=== PATIENT | male | born 1995 | race African-American/Black ===

== ENCOUNTER 2018-07-31 18:01 | Emergency (ER) | payer SELFPAY ==
[~2018-07-31] VITALS: Ht 172.7 cm; Wt 65.3 kg
[2018-07-31 18:03] VITALS: BP 135/94
--- NOTE | 2018-07-31 18:25 | Emergency Room Report ---
History of Present Illness General Chief Complaint: Medical Clearance Source: Patient Present Illness HPI 22-year-old male presents to the emergency department for medical screening exam prior to being booked by a garment sewing machine operator's department. Patient denies any pain at this time he denies any medical complaints. Patient reports history of HIV and seizures he states he takes the medication daily however he cannot recall the name of it. Patient states he did take his medication today. Patient reports that his last seizure was in March. Patient denies illicit drug use he denies alcohol use he reports that he is a smoker. Patient states that he also has been having some epigastric discomfort for 5 weeks now. Patient denies fevers, chills, chest pain, shortness of breath, difficulty or pain with breathing. Allergies: Coded Allergies: No Known Allergies (Unverified , 07/31/18) Patient History Past Medical History: see triage record, seizures, HIV Past Surgical History: none Pertinent Family History: none Social History: Reports: smoking Reviewed Nursing Documentation: PMH: Agreed; PSxH: Agreed Nursing Documentation-PMH Past Medical History: No History, Except For Hx Seizures: Yes Review of Systems All Other Systems: negative except mentioned in HPI Physical Exam Vital Signs Date Time Temp Pulse Resp B/P (MAP) Pulse Ox O2 Delivery O2 Flow Rate FiO2 07/31/18 18:03 98.2 60 17 135/94 99 Room Air Sp02 EP Interpretation: reviewed, normal General Appearance: no apparent distress, alert, GCS 15, non-toxic Head: normocephalic, atraumatic Eyes: bilateral eye normal inspection, bilateral eye PERRL ENT: hearing grossly normal, normal voice Neck: full range of motion Respiratory: lungs clear, normal breath sounds, no respiratory distress, no wheezing, speaking full sentences Cardiovascular #1: regular rate, rhythm Gastrointestinal: normal bowel sounds, non tender, soft Musculoskeletal: back normal, gait/station normal, normal range of motion, non- tender Neurologic: alert, oriented x3, responsive, motor strength/tone normal, sensory intact, normal gait, speech normal, grossly normal Psychiatric: judgement/insight normal Skin: normal color, no rash, warm/dry, well hydrated, other - no rashes, abscess, or track warner Medical Decision Making PA Attestation Dr. Sung is my supervising Physician whom patient management has been discussed with. Diagnostic Impression: Primary Impression: Medical clearance for incarceration ER Course 22-year-old male presents to the emergency department for medical screening exam prior to being booked by a garment sewing machine operator's department. Patient denies any pain at this time he denies any medical complaints. Patient reports history of HIV and seizures he states he takes the medication daily however he cannot recall the name of it. Patient states he did take his medication today. Patient reports that his last seizure was in March. Patient denies illicit drug use he denies alcohol use he reports that he is a smoker. Patient states that he also has been having some epigastric discomfort for 5 weeks now. Patient denies fevers, chills, chest pain, shortness of breath, difficulty or pain with breathing. Ddx considered but are not limited to Head Trauma, AK, ACS, SI/HI, URI, SAH, Fractures, Dislocations, Tazer barbs, Abrasions. Vital signs: are WNL, pt. is afebrile H&PE are most consistent with: normal limited physical examination. ORDERS: none required at this time, the diagnosis is clinical ED INTERVENTIONS: None required at this time. DISCHARGE: At this time pt. is stable for d/c to law enforcement. Will provide printed patient care instructions, and any necessary prescriptions. Care plan and follow up instructions have been discussed with the patient prior to discharge. Last Vital Signs Date Time Temp Pulse Resp B/P (MAP) Pulse Ox O2 Delivery O2 Flow Rate FiO2 07/31/18 18:03 98.2 60 17 135/94 99 Room Air Disposition: D/C TO LAW ENFORCEMENT IN [place] Condition: Stable Referrals: NOT CHOSEN IPA/MD,REFERRING (PCP) Departure Forms: Snf Clearance Patient Instructions: Medical Screening Exam Additional Instructions: Take any previously prescribed medications as directed. Follow up with a Primary Care Provider in 3-5 days, even if your symptoms have resolved. --Please review list of primary care clinics, if you do not already have a primary care provider Return sooner to ED if new symptoms occur, or current symptoms become worse. - Please note that this Emergency Department Report was dictated using [employer] technology software, occasionally this can lead to erroneous entry secondary to interpretation by the dictation equipment. Kandy Decker Jul 31, 2018 18:25
[2018-07-31 18:31] VITALS: BP 124/75
== END 2018-07-31 18:32 ==
LOC: EMR 18:14
DX: Z02.89 Encounter for other administrative examinations (principal); G40.909 Epilepsy, unspecified, not intractable, without status epilepticus; Z91.14 Patient's other noncompliance with medication regimen
CPT/HCPCS: 99283